=== PATIENT | female | born 1990 | race Caucasian/White ===

== ENCOUNTER 2020-06-04 10:22 | Emergency (ER) | payer OTHER ==
[~2020-06-04] VITALS: Ht 157.5 cm; Wt 109.1 kg
[2020-06-04 10:37] VITALS: TEMP 96.8
[2020-06-04 11:36] LABS: BASO # 0.1 (0.0-0.2); BASO % 0.6 % (0.0-2.0); EOS # 0.2 (0.0-0.7); GRAN # 7.6 (1.4-6.5); GRAN % 67.9 % (42.2-75.2); HEMATOCRIT 39.2 % (37.0-47.0); LYMPH # 2.6 (1.2-3.4); MEAN CELL VOLUME 87 fl (80.0-100.0); MEAN CORPUSCULAR HEMOGLOBIN 29 pg (27.0-31.0); MEAN CORPUSCULAR HGB CONC 33 g/dl (33.0-37.0); MEAN PLATELET VOLUME 10.2 fl (7.4-10.4); MONO # 0.7 (0.1-0.6); MONO % 6.2 % (1.7-9.3); PLATELET COUNT 353 K/mm3 (130-400); RED BLOOD COUNT 4.52 M/mm3 (4.10-5.30); REDCELL DISTRIBUTION WIDTH-CV 12.2 % (11.5-14.5)
[2020-06-04 11:40] LABS: ALBUMIN 4.2 gm/dL (3.5-5.0); BILIRUBIN,TOTAL 0.3 mg/dL (0.0-1.0); C-REACTIVE PROTEIN 1.2 mg/dL (0.0-0.9); CALCIUM 9.1 mg/dL (8.4-10.2); CREATININE, serum 0.52 (0.52-1.25); POTASSIUM 4.1 mmol/L (3.4-5.0)
[2020-06-04 13:10] VITALS: BP 127/92; PULSE 74
== END 2020-06-04 13:15 | disposition home or self-care (01) ==
LOC: COL.ER 10:22
PROVIDERS: Nurse Practitioner
DX: H53.8 Other visual disturbances (principal); R20.2 Paresthesia of skin; Z88.2 Allergy status to sulfonamides
CPT/HCPCS: J2060